=== PATIENT | female | born 1960 | race Caucasian/White ===

== ENCOUNTER → 2022-02-09 | Outpatient (CLI) | payer OTHER | END | disposition home or self-care (01) | LOC: RADMAMWWP 16:31 | PROVIDERS: ATTEND Nurse Practitioner Family | DX: Z12.31 Encounter for screening mammogram for malignant neoplasm of breast (principal); E11.9 Type 2 diabetes mellitus without complications; B37.9 Candidiasis, unspecified; E78.5 Hyperlipidemia, unspecified; R53.83 Other fatigue | CPT/HCPCS: 77067 ==

== ENCOUNTER 2022-06-03 06:36 | Day surgery (SDC) | payer OTHER ==
[2022-06-02 09:11] VITALS: BMI 19.9
[~2022-06-03 06:36] MED LIST: ALPRAZolam 0.25 MG TAB PO PRN; ALPRAZolam 0.5 MG TAB PO PRN; ASPIRIN 325 MG TAB PO PRN; HEPARIN SODIUM,PORCINE 10,000 UNIT in SODIUM CHLORIDE 0.9% 1,000 ML IRRIGATION PRN; HEPARIN SODIUM,PORCINE 2,500 UNIT in SODIUM CHLORIDE 0.9% 250 ML IRRIGATION PRN; SODIUM CHLORIDE 0.9% 1,000 ML in EMPTY BAG 1 BAG IV ONE; ZOLPIDEM 5 MG TAB PO PRN
[2022-06-03 06:56] VITALS: RESP 18; TEMP 97.4
[2022-06-03 07:04] LABS: Glucose,Whole Blood 101 mg/dL (70-110)
[2022-06-03 07:08] LABS: Basophils # (A) 0.1 k/uL (0-0.2); Basophils % (A) 1 %; Eosinophils # (A) 0.2 k/uL (0-0.7); Eosinophils % (A) 2 %; HCT 45.6 % (34.0-46.0); HGB 14.9 gm/dL (11.4-16.0); Lymphocytes # (A) 2.9 k/uL (1.0-4.8); Lymphocytes % (A) 21 %; MCH 29.9 pg (25.0-35.0); MCHC 32.7 g/dL (31.0-37.0); MCV 91.2 fL (80.0-100.0); Mean Platelet Volume 7.6; Monocytes # (A) 0.8 k/uL (0-1.0); Monocytes % (A) 6 %; Neutrophils # (A) 9.2 k/uL (1.3-7.7); Neutrophils % (A) 69 %; Platelet Count 439 k/uL (150-450); RBC 4.99 m/uL (3.80-5.40); RDW 13.3 % (11.5-15.5); WBC 13.4 k/uL (3.8-10.6)
[2022-06-03 07:17] LABS: African American GFR (CKD) >90 (>60 ml/min/1.73 sqM); Anion Gap 11 mmol/L; Blood Urea Nitrogen 19 mg/dL (7-17); Calcium 9.5 mg/dL (8.4-10.2); Carbon Dioxide 25 mmol/L (22-30); Chloride 104 mmol/L (98-107); Glucose 107 mg/dL (74-99); Non-African American GFR(CKD) >90 (>60 ml/min/1.73 sqM); Potassium 4.3 mmol/L (3.5-5.1); Sodium 140 mmol/L (137-145)
[2022-06-03] MEDS ORDERED: fentaNYL (PF) 50 MCG/ML 2 ML AMP ONE (07:34)
[2022-06-03] MEDS ORDERED: MIDAZOLAM 2 MG/2 ML VIAL IV ONE ×2 (07:40→07:59)
[2022-06-03] MEDS ORDERED: fentaNYL (PF) 50 MCG/ML 2 ML AMP IV ONE (07:40)
[2022-06-03] MEDS ORDERED: LIDOCAINE 1% INJ 10MG/ML (30 ML VIAL-PF) SQ ONE (07:44)
[2022-06-03] MEDS ORDERED: CLOPIDOGREL 75 MG TAB ONE (08:24)
[2022-06-03] MEDS ORDERED: CLOPIDOGREL 75 MG TAB PO ONE (08:26)
[2022-06-03] MEDS ORDERED: IOPAMIDOL-250 100ML BTL INTRAARTER ONE ×2 (08:27)
--- NOTE | 2022-06-03 08:44 | P.OP ---
Date of Procedure: 06/03/22 Description of Procedure: Preoperative diagnosis: Oralia 3 peripheral arterial disease, evidence of iliac occlusive disease on ultrasound Postoperative diagnosis: Same Procedure: #1 ultrasound-guided right common femoral artery access #2 diagnostic aortogram with runoffs, no previous imaging #3 percutaneous transluminal balloon expandable noncovered stent 6 x 37 right external iliac artery #4 moderate conscious sedation 36 minutes, personally monitored patient while RN administered Versed, fentanyl #5 measurement of intra-arterial pressures Surgeon: Padmini Lenz D.O. EBL: Less than 10 mL IV fluids: See records Urine output: Not measured Drains: None Complications: None immediately apparent Condition: Stable to recovery Operative indication and findings: Patient is a 62-year-old female with [place] limiting claudication and pain with ambulation worsen her right lower extremity. Workup and evaluation consisted of an ultrasound with ankle-brachial indices and waveforms. Her RAHUL on the left was essentially normal however on the right RAHUL of 0.5. Given these findings she was offered an angiogram. Risks and benefits were discussed, she seemingly understood and was willing to proceed. Procedure in detail: Patient was taken to the operative suite and placed in supine position, the bilateral groins are prepped and draped in usual sterile fashion. The ultrasound was utilized and the right common femoral artery was identified. The skin overlying was anesthetized. Using ultrasound, a permanent images stored and the artery was accessed on first attempt with a micro-access needle. Seldinger technique was used to place a 5-Icelandic sheath. A right iliofemoral angiogram was performed. There was identification of severe right external iliac stenosis. Catheters and wires were used access the aorta. An aortogram was performed. Given the significant right external iliac stenosis, there was limited contrast flow beyond the area of occlusive disease therefore it was decided at this point to intervene on this level. Again no previous imaging in the form of a CT or an angiogram had been performed. The pigtail catheter was removed over a Glidewire. A 6-Icelandic sheath was exchanged. After appropriate measurements it was decided to place a 6 x 37 balloon expandable noncovered stent as a digital reverse area where the internal iliac artery should appear. Also at this time, the arterial pressures were measured at the level of the common femoral artery. After appropriate flushing and zeroing, the pre-intervention measurements were of systolic blood pressure of 60 mmHg. The balloon external stent was then deployed in standard fashion and the repeat pressure measurements showed a systolic blood pressure 120 mmHg. A repeat iliofemoral angiogram showed adequate apposition with resolution of the area of stenosis. The pigtail catheter was then replaced in stations of the bilateral lower extremity angiogram for performed with the findings as detailed below. Catheters was removed. The sheath was removed and manual pressure was held until hemostasis was adequate. Angiographic imaging and interpretation: The aorta appeared normal in course and caliber. Bilateral renal arteries as well as visualized portions of the celiac and superior mesenteric artery appeared patent without significant disease. On the right, she common iliac artery appears patent without significant disease, there is occlusion caused by the injection catheter and at that point no further visualization of flow through the vessel on the right. This again was the reason for the decision to intervene. After completion of the stent, repeat aortogram showed common, internal and external iliac vessels are patent without significant disease on the left side. On the right the common and external. Patent without significant disease. There is no easily visualized internal iliac artery. On the right the common femoral appears diminutive but no significant calcific disease. The superficial femoral and fundus appeared patent without significant disease. On the left, the common femoral appears patent without significant disease. The profunda appeared patent without significant disease. The superficial femoral artery has multiple areas of moderate stenosis bilaterally. Popliteal arteries appear patent bilaterally without significant disease. On the right there is three-vessel runoff the dominant posterior tibial artery at the ankle. On the left the patient has three-vessel runoff at anterior tibial and posterior tibial at the ankle. Plan - Discharge Summary Discharge Rx Participant: Yes New Discharge Prescriptions: No Action Atorvastatin [Lipitor] 10 mg PO DAILY Biotin [Biotin Disolve] 2,500 mcg PO DAILY Cyanocobalamin (Vitamin B-12) [Vitamin B-12] 2,000 mcg PO DAILY Empagliflozin [Jardiance] 25 mg PO DAILY glipiZIDE [Glucotrol] 10 mg PO AC-BID Melatonin 5 mg PO HS Meloxicam [Mobic] 15 mg PO DAILY metFORMIN HCL 1,000 mg PO BID Omeprazole 20 mg PO DAILY Pyridoxine [Vitamin B-6] 50 mg PO DAILY Aspirin EC [Ecotrin Low Dose] 81 mg PO DAILY cilostazoL [Pletal] 100 mg PO BID L.acidoph,Paracasei, B.lactis [Probiotic] 1 each PO DAILY Discharge Medication List Aspirin EC [Ecotrin Low Dose] 81 mg PO DAILY 06/02/22 [History] Atorvastatin [Lipitor] 10 mg PO DAILY 06/02/22 [History] Biotin [Biotin Disolve] 2,500 mcg PO DAILY 06/02/22 [History] Cyanocobalamin (Vitamin B-12) [Vitamin B-12] 2,000 mcg PO DAILY 06/02/22 [History] Empagliflozin [Jardiance] 25 mg PO DAILY 06/02/22 [History] L.acidoph,Paracasei, B.lactis [Probiotic] 1 each PO DAILY 06/02/22 [History] Melatonin 5 mg PO HS 06/02/22 [History] Meloxicam [Mobic] 15 mg PO DAILY 06/02/22 [History] Omeprazole 20 mg PO DAILY 06/02/22 [History] Pyridoxine [Vitamin B-6] 50 mg PO DAILY 06/02/22 [History] cilostazoL [Pletal] 100 mg PO BID 06/02/22 [History] glipiZIDE [Glucotrol] 10 mg PO AC-BID 06/02/22 [History] metFORMIN HCL 1,000 mg PO BID 06/02/22 [History]
[2022-06-03] MEDS ORDERED: SODIUM CHLORIDE 0.9% 1,000 ML IV ONE (08:45)
--- NOTE | 2022-06-03 10:01 | IR ---
Fluoroscopy HISTORY: Peripheral vascular occlusive disease 2.2 mins fluoroscopy time supplied to the referring clinician. 421 intraoperative C-arm images docum ent the procedure. See dictated report from vascular surgery.
[2022-06-03 16:28] VITALS: BP 176/72; PULSE 76
== END 2022-06-03 16:00 | disposition home or self-care (01) ==
LOC: CATHCVL 06:36
PROVIDERS: ATTEND Surgery
DX: I73.9 Peripheral vascular disease, unspecified (principal); E11.9 Type 2 diabetes mellitus without complications; F41.9 Anxiety disorder, unspecified; F32.A Depression, unspecified; E78.5 Hyperlipidemia, unspecified; F17.200 Nicotine dependence, unspecified, uncomplicated; Z98.51 Tubal ligation status; Z79.84 Long term (current) use of oral hypoglycemic drugs; Z79.82 Long term (current) use of aspirin
CPT/HCPCS: 37221; 75625; 75716; 76937; 80048; 85025; C1894 ×3; C1769 ×3; C1876; J2250; J2001; J3010; Q9966

== ENCOUNTER → 2023-09-12 | Outpatient (CLI) | payer OTHER ==
[2023-09-12 15:52] LABS: ALT 12 U/L (8-44); AST 10 U/L (13-35); Albumin 4.5 g/dL (3.8-4.9); Alkaline Phosphatase 120 U/L (41-126); BUN/Creat Ratio 15.43 Ratio (12.00-20.00); Blood Urea Nitrogen 10.8 mg/dL (9.0-27.0); Calcium 9.9 mg/dL (8.7-10.3); Chloride 102 mmol/L (96-109); Chol/HDL Ratio 3.19 Ratio; Globulin 2.5 g/dL (1.6-3.3); Glucose 200 mg/dL (70-110); LDL Cholesterol,Calculated 70.2 mg/dL (0.0-131.0); Potassium 4.6 mmol/L (3.5-5.5); Sodium 143 mmol/L (135-145); Total Bilirubin 0.3 mg/dL (0.3-1.2)
== END | disposition home or self-care (01) ==
LOC: LABWHC1 07:39
PROVIDERS: ATTEND Physician Assistant
DX: E11.40 Type 2 diabetes mellitus with diabetic neuropathy, unspecified (principal); E78.5 Hyperlipidemia, unspecified
CPT/HCPCS: 36415; 80053; 80061; 83036

== ENCOUNTER → 2023-10-17 | Outpatient (CLI) | payer OTHER ==
--- NOTE | 2023-10-18 17:50 | MM ---
Reason for Exam: Screening (asymptomatic). Last mammogram was performed 1 year(s) and 8 month(s) ago. Patient History: Menarche at age 10. First Full-Term at age 18. Postmenopausal. Risk Values: Imani 5 year model risk: 1.3%. NCI Lifetime model risk: 5.2%. Prior Study Comparison: 04/03/2018 Bilateral MG screening mammo w CAD - 2, [place]. 02/09/2022 Bilateral MG screening mammo w CAD, [facility]. Tissue Density: The breasts are heterogeneously dense, which may obscure small masses. Findings: Analyzed By CAD. There is no suspicious group of microcalcifications or new suspicious mass in either breast. Overall Assessment: Negative, BI-RAD 1 Management: Screening Mammogram of both breasts in 1 year. . Patient should continue monthly self-breast exams. A clinical breast exam by your physician is recommended on an annual basis. This exam should not preclude additional follow-up of suspicious palpable abnormalities. Note on Imani scores and lifetime risk: 1. A Imani score greater than 3% is considered moderate risk. If this is the case, consider specialist referral to assess eligibility for a risk reducing agent. 2. If overall lifetime risk for the development of breast cancer is 20% or higher, the patient may qualify for future screening with alternating mammogram and breast MRI. Electronically signed and approved by: Mendez Varela M.D. Radiologist
== END | disposition home or self-care (01) ==
LOC: RADMAMWWP 07:25
PROVIDERS: ATTEND Pediatrics
DX: Z12.31 Encounter for screening mammogram for malignant neoplasm of breast (principal); Z78.0 Asymptomatic menopausal state
CPT/HCPCS: 77063; 77067

== ENCOUNTER → 2023-12-22 | Outpatient (CLI) | payer OTHER ==
[2023-12-22 15:24] LABS: Basophils # (A) 0.11 X 10*3/uL (0.00-0.10); Basophils % (A) 0.9 %; Eosinophils # (A) 0.28 X 10*3/uL (0.04-0.35); Eosinophils % (A) 2.2 %; HGB 14.9 g/dL (12.0-15.0); Lymphocytes # (A) 1.93 X 10*3/uL (0.90-5.00); Lymphocytes % (A) 15.1 %; MCH 29.7 pg (27.0-32.0); MCHC 31.7 g/dL (32.0-37.0); MCV 93.6 FL (80.0-97.0); Mean Platelet Volume 10.5 FL (9.5-12.2); NRBC Per 100 WBC 0 X 10*3/uL (0.00-0.01); Neutrophils # (A) 9.52 X 10*3/uL (1.80-7.70); Neutrophils % (A) 74.4 %; Platelet Count 364 X 10*3/uL (140-440); RBC 5.02 X 10*6/uL (4.10-5.20); RDW 14.6 % (11.5-14.5); WBC 12.79 X 10*3/uL (4.50-10.00)
[2023-12-22 15:45] LABS: ALT 8 U/L (8-44); AST 12 U/L (13-35); Albumin 4.1 g/dL (3.8-4.9); Albumin/Globulin Ratio 1.95 Ratio (1.60-3.17); Alkaline Phosphatase 108 U/L (41-126); BUN/Creat Ratio 24.29 Ratio (12.00-20.00); Calcium 9.8 mg/dL (8.7-10.3); Carbon Dioxide 25.6 mmol/L (21.6-31.8); Chloride 107 mmol/L (96-109); Ferritin 28.7 ng/mL (10.0-291.0); Globulin 2.1 g/dL (1.6-3.3); Glucose 155 mg/dL (70-110); Potassium 5.2 mmol/L (3.5-5.5); Sodium 144 mmol/L (135-145); Total Bilirubin 0.3 mg/dL (0.3-1.2); Total Protein 6.2 g/dL (6.2-8.2)
== END | disposition home or self-care (01) ==
LOC: LABWHC1 07:45
PROVIDERS: ATTEND Physician Assistant
DX: E11.40 Type 2 diabetes mellitus with diabetic neuropathy, unspecified (principal); D50.9 Iron deficiency anemia, unspecified
CPT/HCPCS: 36415; 80053; 82728; 83036; 85025

== ENCOUNTER → 2024-10-17 | Outpatient (CLI) | payer MEDICARE ==
--- NOTE | 2024-10-17 08:39 | CTL ---
EXAMINATION TYPE: CT Low Dose Lung DATE OF EXAM ORDERED: 10/17/2024 COMPARISON: None. CLINICAL INDICATION: Female, 64 years old with history of Z12.2 screening; [facility], screening lung CA, Ana ng cancer screening, History of Smoking/tobacco use. TECHNIQUE: Low dose computed tomography scan was performed through the chest at 1 mm thick sections a nd reconstructed images in multiple planes at 1 mm and [address] DLP: 60.[address] CTDI: 1.8 mGy Automated exposure control for dose reduction was used. CT DIAGNOSTIC QUALITY: Satisfactory FINDINGS: Nodules: A few scattered small nodules are seen bilaterally. For reference is a 4 x 2 mm anterior right mid lung nodule axial image 125. For reference is a 4 mm a nterior left upper lung pulmonary nodule axial image 60 contiguous with focal linear scarring. For re ference is a 2 to 3 mm anterolateral right midlung pulmonary nodule axial image 120. No greater than 6 mm pulmonary nodules. LUNGS: COPD: Severity: None Fibrosis: Severity: None Lymph nodes: None Other findings: None RIGHT PLEURAL SPACE: Effusion: None Calcification: None Thickening: None Pneumothorax: None LEFT PLEURAL SPACE: Effusion: None Calcification: None Thickening: None Pneumothorax: None HEART: Heart Size: Normal Coronary Calcification: Mild Pericardial Effusion: None OTHER FINDINGS: Upper abdomen: None Bony thorax: Scoliotic curvature or positioning Supraclavicular region: Heterogeneous slightly prominent thyroid gland with 4 mm right-sided calcific ation. Other: None IMPRESSION: A few scattered small nodules. No significant greater than [address] LUNG RAD AND CT CHEST RECOMMENDATION: Lung-Rad 2 Benign Appearance or Behavior: Continue annual sc reening with LDCT in 12 months. S Modifier (other clinically significant findings): None [facility], , 10/17/2024 8:37 AM
--- NOTE | 2024-10-17 08:55 | MM ---
Reason for Exam: Screening (asymptomatic). Last screening mammogram was performed 12 month(s) ago. Patient History: Menarche at age 10. First Full-Term at age 18. Postmenopausal. Risk Values: Imani 5 year model risk: 1.3%. NCI Lifetime model risk: 5.0%. Prior Study Comparison: 04/03/2018 Bilateral MG screening mammo w CAD - 2, [place]. 02/09/2022 Bilateral MG screening mammo w CAD, [facility]. 10/17/2023 Bilateral MG 3D screening mammo w/cad, [facility]. Tissue Density: The breasts are heterogeneously dense, which may obscure small masses. Findings: Analyzed By CAD. There is no suspicious group of microcalcifications or new suspicious mass in either breast. Overall Assessment: Benign, BI-RAD 2 Management: Screening Mammogram of both breasts in 1 year. . Patient should continue monthly self-breast exams. A clinical breast exam by your physician is recommended on an annual basis. This exam should not preclude additional follow-up of suspicious palpable abnormalities. Note on Imani scores and lifetime risk: 1. A Imani score greater than 3% is considered moderate risk. If this is the case, consider specialist referral to assess eligibility for a risk reducing agent. 2. If overall lifetime risk for the development of breast cancer is 20% or higher, the patient may qualify for future screening with alternating mammogram and breast MRI. [facility], , 10/17/2024 8:52 AM. Electronically signed and approved by: Alvino Goff M.D. Radiologis
--- NOTE | 2024-10-17 10:03 | US ---
EXAMINATION TYPE: US arterial LE multi level DATE OF EXAM: 10/17/2024 9:48 AM COMPARISONS: None. CLINICAL INDICATION: Female, 64 years old with history of I79.3 PAD; PAD patient has a stent in right groin. TECHNIQUE: Systolic pressures were taken of the upper and lower extremity arteries with ankle-brachia l indices and toe brachial indices calculated bilaterally. History of: Smoker: Current Smoker Hypertension: No Diabetic: Yes Hyperlipidemia: No TIA/CVA: No Previous Vascular Surgery: Yes CAD: No OR: No Vascular Ulcers: No Claudication: No Gangrene: No FINDINGS: Doppler Waveforms: Right: Multiphasic Left: Monophasic Brachial Artery systolic pressure: Right: 177 Left: 186 Posterior Tibial artery systolic pressure: Right: 160 Left: 105 Dorsalis Pedis artery systolic pressure: Right: 171 Left: 120 Toe artery systolic pressure: Right: 128 Left: 53 Ankle-Brachial Indices: Right:0.92 Left:0.65 Toe Brachial Indices: Right:0.69 Left: 0.28 (Normal > 0.6; Mild 0.35 - 0.59, Moderate 0.12 - 0.34, Severe <0.12) IMPRESSION: RAHUL: Right: Normal 0.9 - 1.4, Recommendation: None Left: At least Moderate Arterial Disease 0.5-0.7, Recommendation: Refer to vascular specialist [facility], , 10/17/2024 10:01 AM
--- NOTE | 2024-10-17 10:04 | US ---
EXAMINATION TYPE: US carotid duplex BILAT DATE OF EXAM: 10/17/2024 COMPARISON: NONE CLINICAL INDICATION: Female, 64 years old with history of I65.23 CAROTID STENOSIS; stenosis Additional History: .... TECHNIQUE: Grayscale, color Doppler and spectral Doppler evaluation of the bilateral carotid systems and vertebral arteries. Indirect Doppler criteria was utilized. FINDINGS: EXAM MEASUREMENTS: RIGHT: Peak Systolic Velocity (PSV) cm/sec ----- Right CCA: 94.2 ----- Right ICA: 152 ----- Right ECA: 196 ICA/CCA ratio: 1.6 RIGHT: End Diastole cm/sec ----- Right CCA: 18.2 ----- Right ICA: 37.1 ----- Right ECA: 0 LEFT: Peak Systolic Velocity (PSV) cm/sec ----- Left CCA: 94.8 ----- Left ICA: 193 ----- Left ECA: 212 ICA/CCA ratio: 2.0 LEFT: End Diastole cm/sec ----- Left CCA: 19.5 ----- Left ICA: 40.8 ----- Left ECA: 0 VERTEBRALS (direction of flow): Right Vertebral: Antegrade Left Vertebral: Antegrade Rhythm: Normal CUSTODIAL SUPERVISOR NOTES: No significant stenosis seen Color Doppler imaging shows patency with blood flow throughout the carotid artery. Spectral waveforms are within normal limits. Moderate to severe shadowing plaque bilateral carotid bulb level. IMPRESSION: Significant stenosis proximal left internal carotid artery felt present. Consider CTA of the neck to further evaluate and characterize. Right: Less than 50% stenosis of the carotid bifurcation. Left: 50-69% stenosis of the carotid bifurcation. Criteria for Assigning % of Stenosis / Diameter reduction (Estimation based on the indirect measurements of the internal carotid artery velocities (ICA PSV). 1. Normal (no stenosis)=ICA PSV < 125 cm/s: ratio < 2.0: ICA EDV<40 cm/s. 2. Less than 50% stenosis=ICA PSV < 125 cm/s: ratio < 2.0: ICA EDV<40 cm/s. 3. 50 to 69% stenosis=ICA PSV of 125 to 230 cm/s: ration 2.0 ? 4.0: ICA EDV 40-100 cm/s. 4. Greater than 70% stenosis to near occlusion= ICA PSV > 230 cm/s: ratio > 4.0: ICA EDV > 100 cm/s. 5. Near occlusion= ICA PSV velocities may be low or undetectable: variable ratio and ICA EDV. 6. Total occlusion=unable to detect flow. [facility], , 10/17/2024 10:02 AM
== END | disposition home or self-care (01) ==
LOC: RADCTMAIN 08:01
PROVIDERS: ATTEND Internal Medicine
DX: Z12.31 Encounter for screening mammogram for malignant neoplasm of breast (principal); Z12.2 Encounter for screening for malignant neoplasm of respiratory organs; I73.9 Peripheral vascular disease, unspecified; I65.23 Occlusion and stenosis of bilateral carotid arteries; F17.210 Nicotine dependence, cigarettes, uncomplicated; R92.333 Mammographic heterogeneous density, bilateral breasts; R91.1 Solitary pulmonary nodule; I77.89 Other specified disorders of arteries and arterioles; Z78.0 Asymptomatic menopausal state
CPT/HCPCS: 71271; 77063; 77067; 93880; 93923

== ENCOUNTER → 2025-01-29 | Outpatient (CLI) | payer MEDICARE ==
--- NOTE | 2025-01-29 10:27 | US ---
EXAMINATION TYPE: US gallbladder DATE OF EXAM: 01/29/2025 COMPARISON: NONE CLINICAL INDICATION: Female, 65 years old with history of K80.20 CALCULUS OF GALLBLADDER W/O CHOLECYS TITIS W; pain TECHNIQUE: Grayscale and color Doppler imaging of the right upper quadrant was performed. FINDINGS: EXAM MEASUREMENTS: Liver Length: 17.9 cm Gallbladder Wall: 0.3 cm CBD: 1.0 cm Right Kidney: 0.8 x 4.8 x 4.4 cm Pancreas: Most of the pancreas is visualized and shows no gross abnormality. Liver: wnl Gallbladder: Filled with stones. Borderline wall thickening of 3 mm. No surrounding fluid. Evidence for sonographic Guthrie's sign: No CBD: Dilated Right Kidney: wnl IMPRESSION: 1. Gallbladder is filled with stones. Sonographic Guthrie's sign reported absent. 2. Bile duct dilated at 1.0 cm. Correlate with alkaline phosphatase and bilirubin levels to exclude b iliary obstruction. [facility], , 01/29/2025 10:24 AM
== END | disposition home or self-care (01) ==
LOC: RADUSWWP 07:37
PROVIDERS: ATTEND Internal Medicine
DX: K80.20 Calculus of gallbladder without cholecystitis without obstruction (principal); K83.8 Other specified diseases of biliary tract
CPT/HCPCS: 76705

== ENCOUNTER → 2025-02-24 | Outpatient (CLI) | payer MEDICARE ==
--- NOTE | 2025-02-24 20:11 | MR ---
MR MRCP INDICATION: Patient age:Female; 65 years old; Reason for study: K80.20 CALCULUS OF GALLBLADDER W/O CHOLECYSTITIS W; [facility]. COMPARISON: Gallbladder ultrasound 01/29/2025, CT chest abdomen pelvis 01/06/2025. TECHNIQUE: Multi planar, T2-weighted imaging with and without fat saturation and chemical shift imag ing was performed of the abdomen. Then, heavily T2 weighted imaging was utilized in order to study th e biliary system. Maximum intensity projection images were reconstructed from the original data of t he biliary tree. No Gadolinium given. FINDINGS: MRCP: Minimal intrahepatic biliary ductal dilatation. The common bile duct is dilated measuring up to 14 mm. The common bile duct at the level of the pancreatic head measures 6 mm in diameter. The panc reatic duct is normal. No distinct filling defect identified within the biliary system. No stricture identified. There is no abrupt caliber change of the biliary system. The gallbladder is full of stones. No wall thickening or surrounding inflammatory changes. No pericho lecystic fluid. Abdomen: The spleen, adrenal glands, kidneys, and pancreas have a normal noncontrast appearance. Mild ly enlarged liver measuring 18.9 cm in CC dimension. Probably represents a Sue lobe variant. Peria mpullary duodenal diverticulum. IMPRESSION: 1. Intra and extra hepatic biliary duct dilatation without evidence for ductal stricture or choledoc holithiasis. 2. Cholelithiasis without MRI evidence for acute cholecystitis. 3. Prominent periampullary duodenal diverticulum. [facility], , 02/24/2025 8:08 PM
== END | disposition home or self-care (01) ==
LOC: RADMRIMAIN 07:18
PROVIDERS: ATTEND Internal Medicine
DX: K80.20 Calculus of gallbladder without cholecystitis without obstruction (principal); K57.10 Diverticulosis of small intestine without perforation or abscess without bleeding; K83.8 Other specified diseases of biliary tract
CPT/HCPCS: 74181